=== PATIENT | female | born 1950 | race Two or more races ===

== ENCOUNTER 2017-03-18 14:23 | Emergency (ER) | payer MEDICARE ==
[~2017-03-18] VITALS: Ht 162.6 cm; Wt 62.9 kg
[2017-03-18] MEDS ORDERED: SODIUM CHLORIDE FLUSH 10ML SYR IVF ONE (16:00)
[2017-03-18] MEDS ORDERED: FAMOTIDINE 20 MG TABLET PO ONE (16:00)
[2017-03-18] MEDS ORDERED: MAALOX/HYOSCYAMINE/LIDOCAINE 45 ML BTL PO ONE (16:00)
[2017-03-18] MEDS ORDERED: ASPIRIN 81 MG TABLET CHEW PO ONE (16:00)
[2017-03-18] MEDS ORDERED: ONDANSETRON 2MG/ML, 2ML IVPush ONE (16:00)
[2017-03-18 16:05] VITALS: BP 155/84
[2017-03-18] MEDS ORDERED: RANI150T4 PO (16:07)
[2017-03-18] MEDS ORDERED: METO25TA35 PO (16:07)
[2017-03-18] MEDS ORDERED: ATOR10TA PO (16:07)
[2017-03-18] MEDS ORDERED: LOSA50TA6 PO (16:07)
[2017-03-18] MEDS ORDERED: ERGO500017 PO (16:07)
[2017-03-18] MEDS ORDERED: FELO10TA PO (16:07)
[2017-03-18] MEDS ORDERED: FAMOTIDINE 20 MG/2 ML ONE (16:08)
[2017-03-18] MEDS ORDERED: MAALOX/HYOSCYAMINE/LIDOCAINE 45 ML BTL ONE (16:08)
[2017-03-18] MEDS ORDERED: ASPIRIN 81 MG TABLET CHEW ONE (16:08)
[2017-03-18] MEDS ORDERED: ONDANSETRON 2MG/ML, 2ML ONE (16:08)
[2017-03-18 16:19] LABS: HEMATOCRIT 45.8 % (34.6-47.8); HEMOGLOBIN 15.7 g/dL (11.7-16.4); WHITE BLOOD COUNT 8.2 x10^3/uL (3.4-10)
[2017-03-18 16:27] LABS: BLOOD UREA NITROGEN 10 mg/dL (7-18)
[2017-03-18 16:34] LABS: ASPARTATE AMINO TRANSFERASE 25 U/L (15-37)
[2017-03-18 16:36] LABS: IS PT STATUS REG ER OR PRE ER? YES
[2017-03-18] MEDS ORDERED: FAMOTIDINE 20 MG TABLET ONE (17:12)
== END 2017-03-18 17:14 | disposition home or self-care (01) ==
LOC: ED 17:08
DX: K21.9 Gastro-esophageal reflux disease without esophagitis (principal)
CPT/HCPCS: 36415; 71020; 80053; 81003; 83690; 83880; 84484; 85025; 93005; 99285

== ENCOUNTER → 2017-03-31 | Outpatient (CLI) | payer MEDICARE ==
[~2017-03-31] MED LIST: ATOR10TA PO; ERGO500017 PO; FELO10TA PO; LOSA50TA6 PO; METO25TA35 PO; RANI150T4 PO
== END ==
LOC: CFH 08:29
PROVIDERS: ATTEND Nurse Practitioner Family
DX: K80.20 Calculus of gallbladder without cholecystitis without obstruction (principal)
CPT/HCPCS: 76700